=== PATIENT | female | born 1975 | race Two or more races ===

== ENCOUNTER 2017-07-25 13:27 | Emergency (ER) | payer OTHER ==
[2017-07-25 13:36] VITALS: BP 122/68
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
== END 2017-07-25 14:30 | disposition home or self-care (01) ==
LOC: ER 13:27
DX: S29.012A Strain of muscle and tendon of back wall of thorax, initial encounter (principal); V49.40XA Driver injured in collision with unspecified motor vehicles in traffic accident, initial encounter
CPT/HCPCS: 99283